=== PATIENT | male | born 1940 | race Caucasian/White ===

== ENCOUNTER 2017-03-04 08:29 | Observation (INO) | payer MEDICARE, BC ==
--- NOTE | ~2017-03-04 | CN ---
Consultation Report [address] [place]. [address] NAME: REED HUA : 39 STATUS : ADM Allyson PAT#: [id number] AGE: 76 ADM/REG DATE : 03/04/17 MR#: [id number] REPORT SERV DATE: 03/04/17 DICTATED BY: MIGUEL SHEN III DATE: 03/04/17 REPORT STATUS : Draft TRANSCRIBED BY: MODL DATE: 03/04/17 CONSULTATION DATE OF CONSULTATION: REQUESTING PHYSICIAN: Dr. Singh. REASON FOR CONSULTATION: Right ureteral calculus. HISTORY OF PRESENT ILLNESS: Mr. Hua is a 76-year-old white male with a history of nephrolithiasis. He is a former patient of Dr. Dieter Centeno. He began having some flank pain approximately ten days ago. Ultimately, presented to the emergency room earlier today for evaluation. A CT scan was obtained showing 8 mm right ureteral calculus with hydronephrosis as above. He is admitted for pain control. PAST MEDICAL HISTORY: History of stroke, coronary artery disease, hypercholesterolemia, hypertension, history of prostate cancer, diabetes mellitus. PAST SURGICAL HISTORY: Tonsillectomy, heart catheterization, coronary artery bypass graft, prostatectomy. HOME MEDICATIONS: Reviewed. He is on Plavix. ALLERGIES: HE HAS NO KNOWN DRUG ALLERGIES. PHYSICAL EXAMINATION: GENERAL: The patient is awake, alert, and comfortable. He states, he is in no pain at this point in time. IMAGING: His CT scan is reviewed. He does have an 8 mm proximal stone on the right with hydronephrosis above it, it is approximately at the level of L4. ASSESSMENT: 1. Right proximal ureteral calculus. 2. Plavix therapy. PLAN: The patient is to hold his Plavix. He states that, he has done this in the past. We will reschedule his lithotripsy to be done at the beginning of next week after approximately five days off Plavix. PH/MODL Consultation Report [address] [place]. [address] NAME: REED HUA : 39 STATUS : ADM Allyson PAT#: [id number] AGE: 76 ADM/REG DATE : 03/04/17 MR#: [id number] REPORT SERV DATE: 03/04/17 DICTATED BY: MIGUEL SHEN III DATE: 03/04/17 REPORT STATUS : Draft TRANSCRIBED BY: MODL DATE: 03/04/17 Miguel Shen III, M.D. / [id number] CC: Uzair Butler Jr, MD Richard Moody, M.D.
--- NOTE | ~2017-03-04 | HP ---
History And Physical [id number] [place]. [address] NAME: REED HUA : 39 STATUS : ADM Allyson PAT#: [id number] AGE: 76 ADM/REG DATE : 03/04/17 MR#: [id number] REPORT SERV DATE: 03/05/17 DICTATED BY: NENA SINGH DATE: 03/04/17 REPORT STATUS : Draft TRANSCRIBED BY: LORA DATE: 03/04/17 DATE OF ADMISSION: 03/04/2017 CHIEF COMPLAINT: Right-sided CVA pain. HISTORY OF PRESENT ILLNESS: The patient is a very pleasant 76-year-old white male. He states about 10 days ago he developed right-sided CVA pain lasted about 24 hours then stopped. Then three days ago, it him again was. It was painful, throbbing in his right CVA then today at 3:00 a.m. the pain returned. He states it is an achy like pain. He cannot find any comfortable positions. He did have some groin pain yesterday. He has had no documented fever. No dysuria. He has had some nausea, but no vomiting. He has had no diarrhea, no abdominal pain. PAST MEDICAL HISTORY: 1. Hypertension. 2. CAD, status post CABG. 3. CVA x2. 4. Uki-nwpblsp-qndcfiwnj diabetes mellitus. 5. Prostate cancer with history of prostatectomy. 6. Hyperlipidemia. PAST SURGICAL HISTORY: He has had a CABG and a prostatectomy. ALLERGIES: NO KNOWN DRUG ALLERGIES. FAMILY HISTORY: His mom of ovarian cancer. Father had lung cancer, but of heart disease. SOCIAL HISTORY: He no longer smokes. He previously smoked a pipe, but quit in 2009. Does not use alcohol. He is . His is at bedside. HOME MEDICATIONS: Pending the MAR. REVIEW OF SYSTEMS: Full 10-point review of systems obtained. Pertinent positives already mentioned in the HPI. PHYSICAL EXAMINATION: VITAL SIGNS: BP 161/92, temperature 97.6, pulse 92, respiratory rate 16, and sats 98%. GENERAL: Well-developed white male, in no obvious distress. HEENT: Normocephalic, atraumatic. Throat is clear. NECK: Supple. HEART: Regular rate and rhythm. LUNGS: Grossly clear. ABDOMEN: Soft, mildly distended, but nontender. EXTREMITIES: Warm and dry. Pulses are 2+ at the feet. He has no peripheral edema. History And Physical [address] [place]. [address] NAME: REED HUA : 39 STATUS : ADM Allyson PAT#: [id number] AGE: 76 ADM/REG DATE : 03/04/17 MR#: [id number] REPORT SERV DATE: 03/05/17 DICTATED BY: NENA SINGH DATE: 03/04/17 REPORT STATUS : Draft TRANSCRIBED BY: LORA DATE: 03/04/17 LABORATORY AND X-RAY: CBC: H and H are 15 and 42, white count 11, platelets are 239. Urinalysis shows 2 whites, 2 reds. CMP: Sodium is 137, potassium 4.6, chloride 100, CO2 of 25, BUN and creatinine 32 and 2.33, glucose 180. LFTs are normal other than a mildly elevated total bilirubin 1.4. Kidney stones CT reveals a right renal stone measuring 8 x 6 mm with mild hydronephrosis. Also, there are two abnormal areas in the liver which are superimposed on a fatty liver which raises concern for either primary hepatocellular or metastatic focus of disease. ASSESSMENT/PLAN: 1. Obstructing right renal stone with mild hydronephrosis. We will consult Urology. We will hydrate overnight provide analgesics p.r.n. His urine looks clean. We will culture it. He is not having any dysuria or fevers. I do not think he needs antibiotics just yet. Dr. Alex is on-call for his group. He will see the patient in consultation. I will keep him n.p.o. for now in case he needs to have a procedure done. 2. Incidental hepatic lesions. He cannot have a dedicated CT with contrast due to his kidney function today. We will go ahead with an MRI of this, looking at the liver more closely. We will also add chest CT to rule out any underlying lung cancer. We will add hepatitis serology to his labs and go from there. 3. Acute kidney injury likely secondary to ongoing possible renal obstruction. His baseline creatinine was 1.3 about three weeks ago. I did confirm this with Dr. Ramos's office. Would recommend hydrating overnight. He does not appear to have any obstructive uropathy other than the kidney stone. I do not think that he needs a Farris just yet. He will likely get one, though postoperatively if he needs a procedure. We will follow his urine output. We will hold his JW inhibitor. We will not give him any NSAIDs. We will hydrate him overnight and see if we can improve his kidney function. We will check some additional urine studies if needed. 4. Deep venous thrombosis prophylaxis. We will start subcu heparin tomorrow in case he needs to go for a procedure today. 5. History of prostate cancer. 6. History of diabetes mellitus. I am going to hold his Januvia and metformin due to his kidney function and the fact that he is not eating then add some sliding scale. 7. History of coronary artery disease with CABG. I am going to hold his Plavix today since he may have a procedure. 8. History of stroke. 9. Disposition, pending above aforementioned plan and workup. FAIZAN/LORA Nena Singh M.D. / [id number] CC: History And Physical [address] [address] NAME: REED HUA : 39 STATUS : ADM Allyson PAT#: [id number] AGE: 76 ADM/REG DATE : 03/04/17 MR#: [id number] REPORT SERV DATE: 03/05/17 DICTATED BY: NENA SINGH DATE: 03/04/17 REPORT STATUS : Draft TRANSCRIBED BY: LORA DATE: 03/04/17 Uzair Butler Jr, MD Moody, Richard C. Samuel Ledford, M.D. Marty Scheinberg, M.D.
--- NOTE | ~2017-03-04 | DS ---
Discharge Summary [facility] [address] [place]. [address] NAME: REED HUA : 39 STATUS : ADM Allyson PAT#: [id number] AGE: 76 ADM/REG DATE : 03/04/17 MR#: [id number] REPORT SERV DATE: 03/05/17 DICTATED BY: FREDDIE VÁSQUEZ DATE: 03/05/17 REPORT STATUS : Draft TRANSCRIBED BY: MODL DATE: 03/05/17 ADMISSION DATE: 03/04/2017 DISCHARGE DATE: 03/05/2017 CONSULTANTS: Dr. Miguel Rodriguez, Urology. DISCHARGE DIAGNOSES: 1. Acute right flank pain due to proximal right ureter calculus. 2. Two liver masses. 3. Diabetes mellitus type 2. 4. Fatty liver. 5. History of coronary bypass. 6. Old strokes. 7. History of prostate cancer, resected. 8. Acute kidney injury associated with problem #1 while on JW inhibitor. 9. Hypertension. HISTORY: The patient has had intermittent right flank pain. It kept coming back with fairly severe. He came to the emergency room at [facility], and as part of the evaluation, he had a kidney stone protocol CT scan, which showed a stone in the proximal right ureter with hydronephrosis. The hydronephrosis was mild. The stone size was 8 x 6 mm. He has old compression fracture of L1. He has fatty liver, but he also had a right hepatic mass 5.5 x 4.9, and a smaller left hepatic mass 1.3 x 1.4. The patient also had CT of the chest as part of this examination, which did not reveal anything other than what is already been described plus mild COPD and cholelithiasis. MRI of the abdomen confirmed large right hepatic lobe lesion that was 4.1 x 4.0 cm with a small collar of edema consistent with metastatic disease and a second smaller 1.0 x 1.0 lesion of the dome of the left diaphragm suggestive of metastases. Urology, Dr. Rodriguez saw the patient. He recommended holding the Plavix for a minimum of five days and then they plan to do an intervention for the stone itself. I talked to the patient, his about this. I also told him about this liver masses and that he would need to have a biopsy of them to confirm it, but that we cannot do that until he has been off Plavix a minimum of five days. Therefore, we are asking his PCP to set him up for an outpatient biopsy of this after the renal stones have been dealt with. The patient has acute kidney injury. On presentation, creatinine was 2.3. We do not know his baseline since he has not been here since 2011 when his creatinine was 0.91. His Altace and metformin were held. He was given IV fluids. His creatinine was 1.94. It is likely that this will continue to improve. The plan is to have the stone dealt with first early next week and then his PCP to arrange for outpatient liver biopsy. All of this will ease off Plavix. DISCHARGE MEDICATIONS: Vitamin D 2000 units daily, Zantac 150 mg b.i.d., Zocor 40 mg at bedtime, Tylenol 650 q.4 hours p.r.n. for mild pain, [place] 5/325 t.i.d. p.r.n. for moderate Discharge Summary [address] [address] NAME: REED HUA : 39 STATUS : ADM Allyson PAT#: [id number] AGE: 76 ADM/REG DATE : 03/04/17 MR#: [id number] REPORT SERV DATE: 03/05/17 DICTATED BY: FREDDIE VÁSQUEZ DATE: 03/05/17 REPORT STATUS : Draft TRANSCRIBED BY: LORA DATE: 03/05/17 pain, #20 no refills; vitamin B once a day, Januvia 100 mg daily. We are holding his Altace and his metformin because of his acute kidney injury. I spent 35 minutes today with the patient and with his and with discharge plan. PATTIE/LORA Freddie Vásquez M.D. / [id number] CC: Gudelia Mccord M.D. Paul Henson III, M.D. Nikhil Shah, M.D.
[2017-03-04 07:58] LABS: BASOPHILS 0.2 %; BASOPHILS ABSOLUTE 0.02 10/3/uL (0.0-0.16); EOSINOPHILS 0.7 %; EOSINOPHILS ABSOLUTE 0.08 10/3/uL (0.0-0.53); HEMATOCRIT 42.8 % (40.0-51.0); HEMOGLOBIN 14.8 g/dL (13.6-17.8); IMMATURE GRANULOCYTES 0.7 %; IMMATURE GRANULOCYTES ABSOLUTE 0.08 10/3/uL (0.0-0.11); LYMPHOCYTES 7.2 %; LYMPHOCYTES ABSOLUTE 0.81 10/3/uL (0.67-4.30); MANUAL DIFF NO %; MEAN CORPUS HGB CONC 34.6 g/dL (32.0-36.0); MEAN CORPUSCULAR VOLUME 89.5 fL (80-100); MEAN PLATELET VOLUME 9.3 fL (9.2-13.0); MONOCYTES 8.5 %; MONOCYTES ABSOLUTE 0.96 10/3/uL (0.21-1.20); NEUTROPHILS 82.7 %; NEUTROPHILS ABSOLUTE 9.35 10/3/uL (2.02-8.40); PLATELET COUNT 239 10/3/uL (150-400); RBC DISTRIBUTION WIDTH 13.3 % (12.0-16.0); RED CELL COUNT 4.78 10/6/uL (4.7-6.1); WHITE BLOOD CELLS 11.3 10/3/uL (4.5-10.5)
[2017-03-04 08:07] LABS: ASCORBIC ACID (UR NOT ORDER) NEG (NEG); BILIRUBIN, URINE NEGATIVE (NEG); ER URINALYSIS TAT 0 Hrs 13 Mins; KETONE, URINE TRACE MG/DL (NEG); LEUKOCYTE ESTERASE(NOT OR NEG (NEG); NITRITE (URINE) NEG (NEG); WBC (NOT ORDERED) (RFLEX) 2 (0-5)
[2017-03-04 08:12] LABS: ALBUMIN 3.8 G/DL (3.5-5.0); CHLORIDE, SERUM 100 MMOL/L (96-112); CO2 (CARBON DIOXIDE) 25 MMOL/L (24-34); DIRECT BILIRUBIN 0.3 MG/DL (0.0-0.4); INDIRECT BILIRUBIN(NOT ORDER) 1.1 MG/DL (0.1-0.9); POTASSIUM, SERUM 4.6 MMOL/L (3.5-5.3); SGOT(AST) 19 U/L (5-40); SGPT(ALT) 25 U/L (5-65); SODIUM, SERUM 137 MMOL/L (135-148); TOTAL BILIRUBIN 1.4 MG/DL (0-1.2); TOTAL PROTEIN 7.9 G/DL (6.0-8.5)
[2017-03-04 08:13] LABS: A/G RATIO 0.9 (0.7-1.9); ALKALINE PHOSPHATASE 70 U/L (45-117); BUN (BLOOD UREA NITROGEN) 32 MG/DL (6-23); CREATININE 2.33 MG/DL (0.70-1.30); GFR AFRICAN AMERICAN 30 ML/MIN (>=60); GFR NON AFRICAN AMERICAN 26 ML/MIN (>=60); GLOBULIN 4.1 G/DL (2.5-4.1); GLUCOSE, SERUM 180 MG/DL (60-99)
[~2017-03-04 08:29] MED LIST: ALTA2.5 PO; ALTACE10 MG PO; COREG3 PO; FOLIC PO; GLUCPH PO; IMDUR60 PO; PLAVIX PO; VITAMIN D31000 UNIT PO; ZOCOR10 PO
[2017-03-04] MEDS ORDERED: B COMPLETE PO (08:32)
[2017-03-04] MEDS ORDERED: ZANTAC 150 PO (08:33)
[2017-03-04] MEDS ORDERED: ZOCOR40 PO (08:33)
[2017-03-04] MEDS ORDERED: VITAMIN D31000 UNIT PO (08:34)
[2017-03-04] MEDS ORDERED: JANUVIA100 MG PO (08:42)
[2017-03-04 13:56] LABS: HEPATITIS B SURFACE ANTIGEN NON-REACTIVE (NON-REACT)
[2017-03-04 14:24] LABS: HEPATITIS B CORE AB IGM NON-REACTIVE (NON-REAC); HEPATITIS C ANTIBODY NON-REACTIVE (NON-REACT)
[2017-03-04 14:26] LABS: HEP A ANTIBODY IGM NON-REACTIVE (NON-REACT)
[2017-03-05 05:34] LABS: BASOPHILS 0.1 %; BASOPHILS ABSOLUTE 0.01 10/3/uL (0.0-0.16); EOSINOPHILS 0.6 %; EOSINOPHILS ABSOLUTE 0.06 10/3/uL (0.0-0.53); HEMOGLOBIN 12.9 g/dL (13.6-17.8); IMMATURE GRANULOCYTES 0.5 %; IMMATURE GRANULOCYTES ABSOLUTE 0.05 10/3/uL (0.0-0.11); LYMPHOCYTES 9.8 %; LYMPHOCYTES ABSOLUTE 0.93 10/3/uL (0.67-4.30); MEAN CORPUS HGB CONC 34.2 g/dL (32.0-36.0); MEAN CORPUSCULAR HEMOGLOB 30.6 pg (26.0-34.0); MEAN CORPUSCULAR VOLUME 89.5 fL (80-100); MEAN PLATELET VOLUME 9.8 fL (9.2-13.0); MONOCYTES 7.8 %; MONOCYTES ABSOLUTE 0.74 10/3/uL (0.21-1.20); NEUTROPHILS 81.2 %; NEUTROPHILS ABSOLUTE 7.67 10/3/uL (2.02-8.40); PLATELET COUNT 228 10/3/uL (150-400); RBC DISTRIBUTION WIDTH 13.4 % (12.0-16.0); RED CELL COUNT 4.21 10/6/uL (4.7-6.1); WHITE BLOOD CELLS 9.5 10/3/uL (4.5-10.5)
[2017-03-05 05:37] LABS: CHLORIDE, SERUM 103 MMOL/L (96-112); CO2 (CARBON DIOXIDE) 22 MMOL/L (24-34); CREATININE 1.94 MG/DL (0.70-1.30); GFR AFRICAN AMERICAN 38 ML/MIN (>=60); GFR NON AFRICAN AMERICAN 32 ML/MIN (>=60); GLUCOSE, SERUM 157 MG/DL (60-99); POTASSIUM, SERUM 4.4 MMOL/L (3.5-5.3); SODIUM, SERUM 138 MMOL/L (135-148)
[2017-03-05 05:41] LABS: HEMATOCRIT 37.7 % (40.0-51.0); MANUAL DIFF NO %
[2017-03-05 05:44] LABS: BUN (BLOOD UREA NITROGEN) 26 MG/DL (6-23); CALCIUM, SERUM 8.9 MG/DL (8.5-10.4)
[2017-03-05] MEDS ORDERED: NORCO1 TA1 PO (14:53)
[2017-03-11] MEDS ORDERED: PLAVIX PO (14:42)
[2017-03-11] MEDS ORDERED: FOLTANX TABLET1 EACH PO (14:42)
[2017-03-11] MEDS ORDERED: GLUCOPHAGE1000 MG PO (14:43)
[2017-03-11] MEDS ORDERED: ALTACE10 MG PO (14:43)
== END 2017-03-05 15:20 | disposition home or self-care (01) ==
LOC: ER 08:29 → CDU1 09:04
PROVIDERS: Emergency Medicine; Internal Medicine
DX: N13.2 Hydronephrosis with renal and ureteral calculous obstruction (principal); I10 Essential (primary) hypertension; I25.10 Atherosclerotic heart disease of native coronary artery without angina pectoris; E11.9 Type 2 diabetes mellitus without complications; E78.5 Hyperlipidemia, unspecified; E78.00 Pure hypercholesterolemia, unspecified; N17.9 Acute kidney failure, unspecified; R16.0 Hepatomegaly, not elsewhere classified; K76.0 Fatty (change of) liver, not elsewhere classified; Z86.73 Personal history of transient ischemic attack (TIA), and cerebral infarction without residual deficits; Z95.1 Presence of aortocoronary bypass graft; Z85.46 Personal history of malignant neoplasm of prostate; Z87.891 Personal history of nicotine dependence; Z98.890 Other specified postprocedural states; Z79.02 Long term (current) use of antithrombotics/antiplatelets; Z79.899 Other long term (current) drug therapy
CPT/HCPCS: 71250; 74176; 74181; 80048; 80053; 80074; 81001; 82248; 82962; 84153; 85025; 96372; 99285; A9270-GY; G0378; J0360

== ENCOUNTER 2017-03-16 12:11 | Day surgery (SDC) | payer MEDICARE, BC ==
--- NOTE | ~2017-03-16 | OP ---
Record Of Operation [facility] [address] [place]. [address] NAME: REED HUA : 39 STATUS : REG [facility]#: [id number] AGE: 76 ADM/REG DATE : 03/16/17 MR#: [id number] REPORT SERV DATE: 03/16/17 DICTATED BY: MIGUEL SHEN III DATE: 03/16/17 REPORT STATUS : Draft TRANSCRIBED BY: MODL DATE: 03/16/17 DATE OF PROCEDURE: 03/16/2017 PREOPERATIVE DIAGNOSIS: Right ureteral calculus. POSTOPERATIVE DIAGNOSIS: Right ureteral calculus. PROCEDURE: Extracorporeal shock wave lithotripsy. SURGEON: Miguel Shen M.D. ANESTHESIA: General. INDICATION: Mr. Hua is a 76-year-old white male with an 8 mm right ureteral calculus. He has held his Plavix for greater than 5 days. Consent is obtained for extracorporeal shock wave lithotripsy. DESCRIPTION OF PROCEDURE: After consent was obtained, the patient was identified. He was taken to the OR and put on the litho table. He was then intubated secondary to a call. After general anesthesia was administered, the stone was visualized. The unit was made ready and lithotripsy commenced. He ultimately received 3000 shocks to a power level of 6. The patient tolerated the procedure well and was taken to recovery in stable condition. PH/MODL Miguel Shen III, M.D. / [id number] CC: Gudelia Glasgow III, M.D.
[~2017-03-16 12:11] MED LIST changes: +B COMPLETE PO; +FOLTANX TABLET1 EACH PO; +GLUCOPHAGE1000 MG PO; +JANUVIA100 MG PO; +NORCO1 TA1 PO; +ZANTAC 150 PO; +ZOCOR40 PO
== END 2017-03-16 20:50 | disposition home or self-care (01) ==
LOC: SDC 12:11
PROVIDERS: Urology
PROC: 0TF6XZZ Fragmentation in Right Ureter, External Approach (ICD-10-PCS; principal; 2017-03-16 14:00)
DX: N20.1 Calculus of ureter (principal); I10 Essential (primary) hypertension; E11.9 Type 2 diabetes mellitus without complications; E78.00 Pure hypercholesterolemia, unspecified; Z95.1 Presence of aortocoronary bypass graft; Z79.899 Other long term (current) drug therapy; Z79.891 Long term (current) use of opiate analgesic; Z79.01 Long term (current) use of anticoagulants; Z79.84 Long term (current) use of oral hypoglycemic drugs
CPT/HCPCS: 50590; 74000; 82962; J2370; J2405; J2710; J3010

== ENCOUNTER 2017-03-19 12:00 | Day surgery (SDC) | payer MEDICARE, BC ==
--- NOTE | ~2017-03-19 | OP ---
Record Of Operation [facility] [address] [place]. [address] NAME: REED HUA : 39 STATUS : PRE [facility]#: [id number] AGE: 76 ADM/REG DATE : MR#: [id number] REPORT SERV DATE: 03/19/17 DICTATED BY: MIGUEL SHEN III DATE: 03/19/17 REPORT STATUS : Draft TRANSCRIBED BY: MODL DATE: 03/19/17 DATE OF PROCEDURE: 03/19/2017 PREOPERATIVE DIAGNOSIS: Right ureteral calculus. POSTOPERATIVE DIAGNOSIS: Right ureteral calculus. PROCEDURE: Cystoscopy, right retrograde pyelogram, right ureteroscopy, and laser ablation of stone with basket extraction of fragments, and double-J ureteral stent placement. SURGEON: Miguel Shen M.D. ANESTHESIA: General. SPECIMEN: Stone for analysis. DRAINS: A 6 x 24 cm double-J ureteral stent. INDICATION: Mr. Hua is a 76-year-old white male with a large right distal ureteral calculus. This is refractory to extracorporeal shockwave lithotripsy. Consent is obtained for the above procedure. PROCEDURE IN DETAIL: After consent was obtained, the patient was identified and was taken to the OR and put to sleep. He was positioned in the low lithotomy position and prepped and draped in usual fashion. A 22-Eritrean cystoscope was made ready and advanced along the course of the urethra and into the bladder. Anterior urethra appeared normal. The prostate was absent consistent with his prior prostatectomy. The bladder appeared normal. A cone- tipped ureteral catheter was used to obtain a right retrograde pyelogram demonstrating a filling defect in the distal ureter consistent with the patient's stone. A Glidewire was then passed up the right ureter, over which a ureteral access sheath was used to dilate the transmural ureter. The short rigid ureteroscope was made ready and advanced to the ureter. The stone was visualized. The holmium laser was made ready and using the 365 fiber, the stone was ablated down to very small fragments. Nitinol basket was then used to pull the fragments out of the ureter and into the bladder. After all significant fragments were removed. The ureteroscope was removed. The wire was backloaded through the cystoscope, which was advanced into the bladder. A 6 x 24 cm double-J ureteral stent was advanced over the wire. When in position, the wire was removed. The stent was noted to coil in the renal pelvis as well as the bladder. The string was left attached. The scope was then removed, whereby removing the string from the scope, the scope was then advanced back into the bladder and the fragments in the bladder were then flushed out and passed off as specimen. The bladder was then drained. The scope was removed. The patient was awakened and taken to recovery in stable condition. PH/MODL Record Of [address] [address] NAME: REED HUA : 39 STATUS : PRE [facility] PAT#: [id number] AGE: 76 ADM/REG DATE : MR#: [id number] REPORT SERV DATE: 03/19/17 DICTATED BY: MIGUEL SHEN III DATE: 03/19/17 REPORT STATUS : Draft TRANSCRIBED BY: MODAyush DATE: 03/19/17 Miguel Shen III, M.D. / [id number] CC: Miguel Shen III, M.D.
[2017-03-24 18:58] LABS: SOURCE OF STONE Right Ureter (()); STONE COMPOSITION TWO DNR (())
== END 2017-03-19 23:59 | disposition home or self-care (01) ==
LOC: SDC 12:00
PROVIDERS: Urology
PROC: 0TC68ZZ Extirpation of Matter from Right Ureter, Via Natural or Artificial Opening Endoscopic (ICD-10-PCS; 2017-03-19)
PROC: BT1DYZZ Fluoroscopy of Right Kidney, Ureter and Bladder using Other Contrast (ICD-10-PCS; 2017-03-19)
PROC: 0T768DZ Dilation of Right Ureter with Intraluminal Device, Via Natural or Artificial Opening Endoscopic (ICD-10-PCS; principal; 2017-03-19 10:15)
DX: N20.1 Calculus of ureter (principal); E11.9 Type 2 diabetes mellitus without complications; E78.5 Hyperlipidemia, unspecified; I10 Essential (primary) hypertension; I25.10 Atherosclerotic heart disease of native coronary artery without angina pectoris; Z95.5 Presence of coronary angioplasty implant and graft; Z86.73 Personal history of transient ischemic attack (TIA), and cerebral infarction without residual deficits; Z79.891 Long term (current) use of opiate analgesic; Z79.899 Other long term (current) drug therapy; Z90.89 Acquired absence of other organs; Z87.442 Personal history of urinary calculi; Z98.41 Cataract extraction status, right eye; Z98.42 Cataract extraction status, left eye; Z85.46 Personal history of malignant neoplasm of prostate; Z98.890 Other specified postprocedural states
CPT/HCPCS: 74420; 82365; 82962; C1758; C1769; C2617; J2250; J2370; J2405; J2710; J3010; Q9967